=== PATIENT | male | born 1955 | race Caucasian/White ===

== ENCOUNTER 2016-10-30 14:25 | Emergency (ER) | payer OTHER ==
[~2016-10-30] VITALS: Ht 172.7 cm; Wt 68.0 kg
[~2016-10-30 14:25] MED LIST: CIPROFLOXACIN500 MG PO; Metformin Hydr500 MG PO; PRILOSEC20 MG PO
[2016-10-30] MEDS ORDERED: GLIPIZIDE10 M2 PO (14:38)
[2016-10-30] MEDS ORDERED: ASPIRIN CHEWABL81 MG PO (14:38)
[2016-10-30] MEDS ORDERED: LISINOPRIL40 MG PO (14:38)
[2016-10-30] MEDS ORDERED: METOPROLOL TART50 M1 PO (14:38)
[2016-10-30] MEDS ORDERED: AUGMENTIN 875875 MG PO (14:49)
== END 2016-10-30 16:34 | disposition home or self-care (01) ==
LOC: ED 14:25
DX: L03.114 Cellulitis of left upper limb (principal); F17.200 Nicotine dependence, unspecified, uncomplicated; Z79.82 Long term (current) use of aspirin; Z79.899 Other long term (current) drug therapy

== ENCOUNTER 2019-07-13 14:25 | Emergency (ER) | payer OTHER ==
[~2019-07-13] VITALS: Wt 81.6 kg
--- NOTE | ~2019-07-13 | EKG ---
[place], [place] ELECTROCARDIOGRAM REPORT NAME: ELGIN BLACK UNIT #: [id number] ROOM: DOCTOR: PRISCILLA DRAFT REPORT BIRTHDATE: [birth year] [facility] Test Date: 2019-07-13 Test Time: 15:16:42 Pat Name: ELGIN BLACK Department: Room: Gender: Car [employer] Attendant: : 1955 Requested By: LINDA CHAPA Order Number: [id number] Reading MD: Du Smith MD Measurements Intervals [place] Rate: 106 P: 87 AK: 169 QRS: 52 QRSD: 102 T: 54 QT: 330 QTc: 439 Interpretive Statements Sinus tachycardia Otherwise normal No previous ECG available for comparison Electronically Signed On 07-14-2019 7:11:15 PDT by Du Smith MD CM:EKGRPT:ELECTROCARDIOGRAM REPORT [id number] LINDA MARX DRAFT REPORT LINDA CHAPA DO
[~2019-07-13 14:25] MED LIST changes: +ASPIRIN CHEWABL81 MG PO; +AUGMENTIN 875875 MG PO; +GLIPIZIDE10 M2 PO; +LISINOPRIL40 MG PO; +METOPROLOL TART50 M1 PO
[2019-07-13 15:35] LABS: BILIRUBIN NEGATIVE (NEGATIVE); BLOOD NEGATIVE (NEGATIVE); CLARITY CLEAR (CLEAR); COLOR YELLOW (YELLOW); GLUCOSE NEGATIVE (NEGATIVE); KETONE NEGATIVE (NEGATIVE); LEUKO ESTERASE NEGATIVE (NEGATIVE); NITRITE NEGATIVE (NEGATIVE); SPECIFIC GRAVITY 1.015 (1.005-1.030); UROBILINOGEN 0.2 E.U./dl (0.2-1.0)
[2019-07-13 15:49] LABS: BASO # 0.1 10*3/uL (0.0-0.1); BASO % 0.7 % (0.0-1.0); EOS # 0.1 10*3/uL (0.0-0.4); HEMATOCRIT 44.1 % (42.0-52.0); HEMOGLOBIN 15.1 g/dl (14.0-18.0); LYMPH # 2.3 10*3/uL (1.3-4.4); LYMPH % 23.2 % (27.0-41.0); MEAN CELL VOLUME 90.7 fl (80.0-94.0); MEAN CORPUSCULAR HGB 31.1 pg (27.0-31.0); MEAN CORPUSCULAR HGB CONC 34.2 g/dl (33.0-37.0); MEAN PLATELET VOLUME 8.7 fl (9.6-12.3); MONO # 0.8 10*3/uL (0.1-1.0); MONO % 7.6 % (3.0-9.0); NEUT # 6.6 10*3/uL (2.3-7.9); NEUT % 67.3 % (47.0-73.0); PLATELET COUNT AUTOMATED 370 10*3/uL (130-400); RED BLOOD COUNT 4.86 10*6/uL (4.50-5.90); RED CELL DISTRI WIDTH 12.8 % (0-14.5); WHITE BLOOD COUNT 9.8 10*3/uL (4.8-10.8)
[2019-07-13 15:52] LABS: BACTERIA TRACE; EPITHELIAL CELLS 0-2
[2019-07-13 16:05] LABS: ALBUMIN 3.7 gm/dl (3.1-4.5); ALKALINE PHOSPHATASE 88 U/L (45-117); BUN 8 mg/dl (7-24); CHLORIDE 97 mmol/L (98-107); CREATININE 0.69 mg/dL (0.70-1.30); LIPASE 86 U/L (73-393); POTASSIUM 4.4 mmol/L (3.5-5.1); SGOT/AST 8 IU/L (3-35); SGPT/ALT 16 U/L (12-78); SODIUM 131 mmol/L (136-145); TOTAL PROTEIN 7.8 gm/dL (6.4-8.2)
[2019-07-13 16:09] LABS: TROPONIN I < 0.015 ng/ml (<0.045)
[2019-07-13 16:13] LABS: ACT PARTIAL THROMBO TIME 28.2 SECONDS (20.0-32.1); INTERNATIONAL NORM RATIO 0.9 (2.0-3.5)
== END 2019-07-13 17:04 | disposition home or self-care (01) ==
LOC: ED 14:25
PROVIDERS: Emergency Medicine
DX: E86.0 Dehydration (principal); R19.7 Diarrhea, unspecified; R42 Dizziness and giddiness; E11.9 Type 2 diabetes mellitus without complications; F17.200 Nicotine dependence, unspecified, uncomplicated; Z79.2 Long term (current) use of antibiotics; Z79.899 Other long term (current) drug therapy

== ENCOUNTER 2021-12-08 23:21 | Emergency (ER) | payer OTHER ==
[~2021-12-08] VITALS: Ht 177.8 cm; Wt 81.6 kg
[2021-12-08 23:49] LABS: HEMATOCRIT 51.7 % (42.0-52.0); MEAN CELL VOLUME 91.7 fl (80.0-94.0); MEAN CORPUSCULAR HGB 31.2 pg (27.0-31.0); PLATELET COUNT AUTOMATED 252 10*3/uL (130-400); RED BLOOD COUNT 5.64 10*6/uL (4.50-5.90); RED CELL DISTRI WIDTH 12.6 % (0-14.5); WHITE BLOOD COUNT 14.3 10*3/uL (4.8-10.8)
[2021-12-08 23:50] LABS: MANUAL DIFF REFLEX YES
[2021-12-09] LABS: ACT PARTIAL THROMBO TIME 26.6 SECONDS (20.0-32.1)
[2021-12-09 00:06] LABS: ALKALINE PHOSPHATASE 85 U/L (45-117); BUN 16 mg/dl (7-24); CHLORIDE 101 mmol/L (98-107); CREATININE 1.27 mg/dL (0.70-1.30); POTASSIUM 3.7 mmol/L (3.5-5.1); SGOT/AST 13 IU/L (3-35); SGPT/ALT 22 U/L (12-78); SODIUM 133 mmol/L (136-145)
[2021-12-09 00:09] LABS: ATYPICAL LYMPHS 7 % (0-0); PLATELET SUFFICIENCY NORMAL (NORMAL); TOTAL CELLS COUNTED 100 #CELLS
== END 2021-12-09 04:22 | disposition left against medical advice (07) ==
LOC: ED 23:21
PROVIDERS: Internal Medicine
DX: J80 Acute respiratory distress syndrome (principal); I21.4 Non-ST elevation (NSTEMI) myocardial infarction; D72.829 Elevated white blood cell count, unspecified

== ENCOUNTER 2023-10-09 03:05 | Emergency (ER) | payer OTHER ==
[~2023-10-09] VITALS: Wt 74.0 kg
[~2023-10-09 03:05] MED LIST changes: +ATORVASTATIN CA40 M1 PO; +KLOR-CON M1010 ME1 PO; +LASIX20 MG PO; +VIBRAMYCIN HYC100 MG PO; +ZESTRIL5 MG PO
[2023-10-09 03:28] LABS: BILIRUBIN Negative (Negative); BLOOD 3+ (Negative); CLARITY Clear (Clear); COLOR Orange (Yellow); GLUCOSE Negative (Negative); KETONE Negative (Negative); LEUKO ESTERASE 1+ (Negative); NITRITE Negative (Negative); UROBILINOGEN 0.2 E.U./dl (0.0-1.0)
[2023-10-09 03:34] LABS: HEMATOCRIT 52.4 % (42.0-52.0); MEAN CELL VOLUME 96.9 fl (80.0-94.0); MEAN CORPUSCULAR HGB 30.3 pg (27.0-31.0); MEAN CORPUSCULAR HGB CONC 31.3 g/dl (33.0-37.0); MEAN PLATELET VOLUME 9.9 fl (9.6-12.3); PLATELET COUNT AUTOMATED 283 10*3/uL (130-400); RED BLOOD COUNT 5.41 10*6/uL (4.50-5.90); RED CELL DISTRI WIDTH 13.8 % (0-14.5); WHITE BLOOD COUNT 15.2 10*3/uL (4.8-10.8)
[2023-10-09 03:39] LABS: RBC 41-50 rbc/hpf (0-2)
[2023-10-09 03:42] LABS: MANUAL DIFF REFLEX YES
[2023-10-09 03:44] LABS: ACT PARTIAL THROMBO TIME 31.3 SECONDS (20.0-32.1)
[2023-10-09 04:01] LABS: ALKALINE PHOSPHATASE 112 U/L (46-116); BUN 20 mg/dl (9-23); CHLORIDE 100 mmol/L (98-107); LIPASE 42 U/L (12-53); POTASSIUM 4.1 mmol/L (3.4-5.1); SGPT/ALT 17 U/L (5-49); TOTAL PROTEIN 6.7 gm/dL (6.0-8.0)
[2023-10-09 04:02] LABS: ATYPICAL LYMPHS 1 % (0-0); BASOPHILS 1 % (0-1); PLATELET SUFFICIENCY NORMAL (NORMAL); TOTAL CELLS COUNTED 100 #CELLS
== END 2023-10-09 11:05 | disposition short-term general hospital (02) ==
LOC: ED 03:07
PROVIDERS: Internal Medicine
DX: I46.9 Cardiac arrest, cause unspecified (principal); Z20.822 Contact with and (suspected) exposure to COVID-19; I21.4 Non-ST elevation (NSTEMI) myocardial infarction; E11.65 Type 2 diabetes mellitus with hyperglycemia; J18.9 Pneumonia, unspecified organism; A41.9 Sepsis, unspecified organism; R65.20 Severe sepsis without septic shock; F17.210 Nicotine dependence, cigarettes, uncomplicated; Z79.2 Long term (current) use of antibiotics; Z79.899 Other long term (current) drug therapy; Z79.82 Long term (current) use of aspirin